=== PATIENT | male | born 1980 | race Caucasian/White ===

== ENCOUNTER 2023-06-27 15:31 | Outpatient (AMB) | payer OTHER, SELFPAY ==
[2023-06-27 15:39] VITALS: BP 158/104; PULSE 138; O2SAT 96
--- NOTE | 2023-06-27 15:39 | MHC.AM.SUB ---
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 Has 3 children (18, 10, and 7yo) Substance use started at 20yo with oxycontin- used to snort them with his father Has previously used: heroin, fentanyl, buprenorphine with [employer] for a short time, oxycodone, cocaine, and benzos He has previously taken Suboxone 20mg daily in split dosing with [employer] x 6 months then he started buying them off the street, States he has been in recovery x 16 years with 2 relapses both 1 yr apiece Has been to [facility] x 2 Has not taken part in any other outpatient programs Is interested in a assistant men's soccer coach Has no providers Hx of anxiety and panic attacks when he was in high school No hx of self harming thoughts NKA Hx of meniscus repair in 2013 (pt unsure which knee) His treatment goal is to attain sobriety and remain abstinent from opioids for his family and to maintain his job Review of Systems Const Reports as per HPI Physical Exam Vital Signs: Last Vital Signs Pulse 138 H 06/27/23 15:39 BP 158/104 H 06/27/23 15:39 Pulse Ox 96 06/27/23 15:39 Oxygen Delivery Method Room Air 06/27/23 15:39 Const General: cooperative and no acute distress Psych Appearance: grossly normal Mental Status: mental status grossly normal Speech and movement: Normal speech and movement present Affect: normal affect Attitude: cooperative Results AMB 12 Panel Urine Drug Screen Urine Marijuana (THC) Negative Last Edit by Aide Colmenares CMA on 06/27/23 15:49 Urine Buprenorphine Negative Last Edit by Aide Colmenares CMA on 06/27/23 15:49 Urine Barbiturates Negative Last Edit by Aide Colmenares CMA on 06/27/23 15:49 Urine Benzodiazepine Positive Last Edit by Aide Colmenares CMA on 06/27/23 15:49 Urine Methadone Positive Last Edit by Aide Colmenares CMA on 06/27/23 15:49 Urine Amphetamine Negative Last Edit by Aide Colmenares CMA on 06/27/23 15:49 Urine Morphine Negative Last Edit by Aide Colmenares CMA on 06/27/23 15:49 Urine Oxycodone Negative Last Edit by Aide Colmenares CMA on 06/27/23 15:49 Urine MDMA Negative Last Edit by Aide Colmenares CMA on 06/27/23 15:49 Urine Cocaine Positive Last Edit by Aide Colmenares CMA on 06/27/23 15:49 Urine Phencyclidine Negative Last Edit by Aide Colmenares CMA on 06/27/23 15:49 Urine Methamphetamine Negative Last Edit by Aide Colmenares CMA on 06/27/23 15:49 Results Reviewed Results Reviewed: Laboratory Last Values POC Urine Buprenorphine Negative 06/27/23 15:40 POC Urine Morphine Negative 06/27/23 15:40 POC Urine Oxycodone Negative 06/27/23 15:40 POC Urine Methadone Positive 06/27/23 15:40 POC Urine Barbiturates Negative 06/27/23 15:40 POC Urine PCP Negative 06/27/23 15:40 POC Ur Amphetamines Negative 06/27/23 15:40 POC Ur Methamphetamine Negative 06/27/23 15:40 POC Urine MDMA Negative 06/27/23 15:40 POC Ur Benzodiazepine Positive 06/27/23 15:40 POC Urine Cocaine Positive 06/27/23 15:40 POC Ur Marijuana (THC) Negative 06/27/23 15:40 Assessment & Plan Assessment & Plan (1) Opioid use disorder, severe, dependence: Code(s): F11.20 - Opioid dependence, uncomplicated Category: Medical Plan: -Discussed 3 day taper induction, patient provided with written instructions -Harm reduction discussed -Narcan provided to patient -Comfort meds sent to pharmacy (hydroxyzine and clonidine) patient instructed to take comfort meds prior to suboxone -Follow up 1 week Orders: Orders AMB 12 Panel Urine Drug Screen 06/27/23 Z51.81 - Encounter for therapeutic drug level monitoring Medications: New buprenorphine-naloxone 2-[address] 1 strip/tab under (each) side of tongue 1 film buccal TID 6 ea 0RF buprenorphine-naloxone 8-2 mg Take at end of induction 1 film buccal TID 10 ea 0RF azithromycin For 250 mg dose pack: take 500 mg today (day 1), then 250 mg for 4 days (days 2-5) PO 6 tabs 0RF hydroxyzine HCl 50 mg PO BID PRN 14 tabs 0RF itching clonidine HCl 0.1 mg PO TID 21 tabs 0RF
== END 2023-06-27 16:35 | disposition home or self-care (01) ==
LOC: HO.HCC 15:31
PROVIDERS: PCP Hospitalist; Visit Provider Nurse Practitioner Family
DX: F11.20 Opioid dependence, uncomplicated (principal)
CPT/HCPCS: 99204

== ENCOUNTER → 2023-06-27 15:31 | Outpatient (BNVA) | payer OTHER, SELFPAY | PROVIDERS: PCP Hospitalist; Visit Provider Nurse Practitioner Family | DX: F11.20 Opioid dependence, uncomplicated (principal) | CPT/HCPCS: 80305 ==

== ENCOUNTER 2023-07-05 16:31 | Outpatient (AMB) | payer OTHER, SELFPAY ==
[2023-07-05 16:44] VITALS: BP 146/88; PULSE 123; O2SAT 97
--- NOTE | 2023-07-05 16:44 | AM.OFFVISNUR ---
Intake Vital Signs 07/05/23 16:44 BP 146/88 H Blood Pressure Location Rt brachial Position Sitting Pulse 123 H Pulse Source Pulse Oximeter Pulse Oximetry (%) 97 Oxygen Delivery Method Room Air Comment pt had just run up the stairs Intake Visit Reasons: MAT visit Allergies No Known Allergies Allergy (Unverified 06/27/23 15:40) Coding
--- NOTE | 2023-07-06 08:38 | MHC.AM.SUB ---
Vital Signs 07/05/23 16:44 BP 146/88 H Blood Pressure Location Rt brachial Position Sitting Pulse 123 H Pulse Source Pulse Oximeter Pulse Oximetry (%) 97 Oxygen Delivery Method Room Air Comment pt had just run up the stairs Intake Visit Reasons: MAT visit Allergies No Known Allergies Allergy (Unverified 06/27/23 15:40) HPI HPI MAT visit: Details: Patient presents for MAT appointment Reports he tried starting his induction on a work day and just couldn't do it He is planning on taking a long weekend this weekend specifically to start his suboxone induction Says he has still been using, but is only using 4 bags a day when previous use had been multiple bundles a day He reports he still has all his films (minus the 1/4 he took when trying to induce) HPI Comments Details: Patient presents for MAT visit Review of Systems Const Reports as per HPI Physical Exam Vital Signs: Last Vital Signs Pulse 123 H 07/05/23 16:44 BP 146/88 H 07/05/23 16:44 Pulse Ox 97 07/05/23 16:44 Oxygen Delivery Method Room Air 07/05/23 16:44 Const General: cooperative and no acute distress Resp Effort & Inspection: normal respiratory effort and able to speak in complete sentences Psych Appearance: grossly normal Mental Status: mental status grossly normal Speech and movement: Normal speech and movement present Affect: normal affect Attitude: cooperative Thought process: Normal thought process present Assessment & Plan Assessment & Plan (1) Opioid use disorder, severe, dependence: Code(s): F11.20 - Opioid dependence, uncomplicated Category: Medical Plan: -Patient to check in with office on Sunday about how his induction is going/went -Follow up 1 week (he will make appt with office when he calls Sunday) -No additional films needed at this time
== END 2023-07-05 16:52 | disposition home or self-care (01) ==
PROVIDERS: PCP Hospitalist; Visit Provider Nurse Practitioner Family
DX: F11.20 Opioid dependence, uncomplicated (principal)
CPT/HCPCS: 99213

== ENCOUNTER → 2023-07-05 16:31 | Outpatient (BNVA) | payer OTHER, SELFPAY | PROVIDERS: PCP Hospitalist; Visit Provider Nurse Practitioner Family ==

== ENCOUNTER 2023-10-04 14:35 | Outpatient (AMB) | payer OTHER, SELFPAY ==
--- NOTE | 2023-10-04 14:42 | A.OFFVISCC_ITS ---
Vital Signs 10/04/23 15:56 BP 122/80 Pulse 95 Pulse Source Pulse Oximeter Pulse Oximetry (%) 99 Intake Visit Reasons: MAT Restart Allergies No Known Allergies Allergy (Unverified 06/27/23 15:40) HPI HPI MAT Restart: Details: Patient presents to re-establish care Was last seen in June when he was trying to cross taper opiates and suboxone He reports that since then he shared with his employer his struggle with substances and allowed him 2 weeks off to get it together Last cocaine and opiate use 6 days ago 6 days ago started suboxone currently at 20mg daily of suboxone --1 in AM, 1 2pm, 1/2 before bedtime having difficulty sleeping, nausea, sweating, tremulous Denies any alcohol use UDS +bup and cocaine Denies any hospitalizations or new medications Review of Systems Const Reports as per HPI Physical Exam Vital Signs: Last Vital Signs Pulse 95 10/04/23 15:56 BP 122/80 10/04/23 15:56 Pulse Ox 99 10/04/23 15:56 Const General: cooperative, healthy appearing, no acute distress and well groomed Nutritional Appearance: average body habitus Orientation/consciousness: patient oriented x3 Limitations: no limitations Neuro General: patient oriented x3 Results AMB 14 Panel Urine Drug Screen Urine Marijuana (THC) Negative Last Edit by Sabrina Dominguez on 10/04/23 15 :31 Urine Cocaine Positive Last Edit by Sabrina Dominguez on 10/04/23 15:31 Urine Morphine Negative Last Edit by Sabrina Dominguez on 10/04/23 15:31 Urine Methamphetamine Negative Last Edit by Sabrina Dominguez on 10/04/23 15 :31 Urine Amphetamine Negative Last Edit by Sabrina Dominguez on 10/04/23 15:31 Urine Benzodiazepine Negative Last Edit by Sabrina Dominguez on 10/04/23 15: 31 Urine Barbiturates Negative Last Edit by Sabrina Dominguez on 10/04/23 15:31 Urine Methadone Negative Last Edit by Sabrina Dominguez on 10/04/23 15:31 Urine Buprenorphine Positive Last Edit by Sabrina Dominguez on 10/04/23 15:3 1 Urine Tricyclic Antidepressant Positive Last Edit by Sabrina Dominguez on 10/04/23 15:31 Urine MDMA Negative Last Edit by Sabrina Dominguez on 07/25/24 15:31 Urine Oxycodone Negative Last Edit by Sabrina Dominguez on 10/04/23 15:31 Urine Phencyclidine Negative Last Edit by Sabrina Dominguez on 10/04/23 15:3 1 Urine Propoxyphene Negative Last Edit by Sabrina Dominguez on 10/04/23 15:31 Results Reviewed Results Reviewed: Laboratory Last Values POC Urine Buprenorphine Positive 10/04/23 15:30 POC Urine Morphine Negative 10/04/23 15:30 POC Urine Oxycodone Negative 10/04/23 15:30 POC Urine Methadone Negative 10/04/23 15:30 POC Urine Propoxyphene Negative 10/04/23 15:30 POC Urine Barbiturates Negative 10/04/23 15:30 POC U Tricyclic Antidpr Positive 10/04/23 15:30 POC Urine PCP Negative 10/04/23 15:30 POC Ur Amphetamines Negative 10/04/23 15:30 POC Ur Methamphetamine Negative 10/04/23 15:30 POC Urine MDMA Negative 10/04/23 15:30 POC Ur Benzodiazepine Negative 10/04/23 15:30 POC Urine Cocaine Positive 10/04/23 15:30 POC Ur Marijuana (THC) Negative 10/04/23 15:30 Assessment & Plan Assessment & Plan (1) Opioid use disorder, severe, dependence: Code(s): F11.20 - Opioid dependence, uncomplicated Category: Medical Plan: * increase suboxone to 12mg BID * comfort medications including gabapentin, zofran and trazodone ordered--reviewed rationale for these medications and side effects * follow up one week in office * lab work to be ordered at next visit Orders: Orders AMB 14 Panel Urine Drug Screen 10/04/23 Z51.81 - Encounter for therapeutic drug level monitoring Medications: New buprenorphine-naloxone 12-3 mg (Suboxone) 1 film buccal BID 28 ea 0RF gabapentin 100 mg PO TID 30 caps 0RF ondansetron HCl 4 mg PO Q8H PRN 20 tabs 0RF nausea and vomiting trazodone 50 mg PO BEDTIME PRN 10 tabs 0RF sleep Discontinued buprenorphine-naloxone 2-[address] 1 strip/tab under (each) side of tongue Discontinued Reason: Patient Completed Course 1 film buccal TID 6 ea 0RF buprenorphine-naloxone 8-2 mg Take at end of induction Discontinued Reason: Patient Completed Course 1 film buccal TID 10 ea 0RF
[2023-10-04 15:56] VITALS: BP 122/80; PULSE 95; O2SAT 99
== END 2023-10-04 15:02 | disposition home or self-care (01) ==
PROVIDERS: PCP Hospitalist; Visit Provider Nurse Practitioner Psychiatric/Mental Health
DX: F11.20 Opioid dependence, uncomplicated (principal)
CPT/HCPCS: 99214

== ENCOUNTER → 2023-10-04 14:35 | Outpatient (BNVA) | payer OTHER, SELFPAY | PROVIDERS: PCP Hospitalist; Visit Provider Nurse Practitioner Psychiatric/Mental Health | DX: F11.20 Opioid dependence, uncomplicated (principal) | CPT/HCPCS: 80305 ==

== ENCOUNTER 2023-10-16 14:07 | Outpatient (AMB) | payer OTHER, SELFPAY ==
--- NOTE | 2023-10-16 15:19 | A.OFFVISCC_ITS ---
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 has been communicating more with supports Review of Systems Const Reports as per HPI and Reports no additional complaints Physical Exam Const General: cooperative, healthy appearing, no acute distress and well groomed Nutritional Appearance: average body habitus Assessment & Plan Assessment & Plan (1) Opioid use disorder, severe, dependence: Code(s): F11.20 - Opioid dependence, uncomplicated Category: Medical Plan: * continue suboxone at current dose * relapse prevention discussion * follow up 2 weeks Medications: Changed From buprenorphine-naloxone 12-3 mg (Suboxone) 1 film buccal BID 28 ea 0RF To buprenorphine-naloxone 12-3 mg (Suboxone) 1 film sublingual BID 60 ea 0RF Refilled buprenorphine-naloxone 12-3 mg (Suboxone) 1 film buccal BID 28 ea 0RF
== END 2023-10-16 14:29 | disposition home or self-care (01) ==
PROVIDERS: PCP Hospitalist; Visit Provider Nurse Practitioner Psychiatric/Mental Health
DX: F11.20 Opioid dependence, uncomplicated (principal)
CPT/HCPCS: 99213

== ENCOUNTER → 2023-10-16 14:07 | Outpatient (BNVA) | payer OTHER, SELFPAY | PROVIDERS: PCP Hospitalist; Visit Provider Nurse Practitioner Psychiatric/Mental Health ==

== ENCOUNTER 2023-11-05 15:43 | Outpatient (AMB) | payer OTHER, SELFPAY ==
--- NOTE | 2023-11-05 16:05 | A.OFFVISCC_ITS ---
Intake Visit Reasons: MAT Allergies No Known Allergies Allergy (Unverified 06/27/23 15:40) Medication List - Last Reconciled 11/05/23 by Laurence Ravi CNP buprenorphine-naloxone 12-3 mg (Suboxone) 1 film sublingual BID clonidine HCl 0.1 mg PO TID HPI HPI MAT: Details: Patient presents for follow up Currently prescribed suboxone 12mg BID Still working FT --daughter moving into college next week No longer experiencing withdrawal sx Review of Systems Const Reports as per HPI and Reports no additional complaints Physical Exam Const General: cooperative, healthy appearing, no acute distress and well groomed Nutritional Appearance: average body habitus Assessment & Plan Assessment & Plan (1) Opioid use disorder, severe, dependence: Code(s): F11.20 - Opioid dependence, uncomplicated Category: Medical Plan: * continue suboxone at current dose * relapse prevention discussion * follow up 4 weeks
== END 2023-11-05 16:15 | disposition home or self-care (01) ==
PROVIDERS: PCP Hospitalist; Visit Provider Nurse Practitioner Psychiatric/Mental Health
DX: F11.20 Opioid dependence, uncomplicated (principal)
CPT/HCPCS: 99213

== ENCOUNTER → 2023-11-05 15:43 | Outpatient (BNVA) | payer OTHER, SELFPAY | PROVIDERS: PCP Hospitalist; Visit Provider Nurse Practitioner Psychiatric/Mental Health ==

== ENCOUNTER 2023-12-03 15:11 | Outpatient (AMB) | payer OTHER, SELFPAY ==
--- NOTE | 2023-12-03 15:15 | A.OFFVISCC_ITS ---
Intake Visit Reasons: MAT Allergies No Known Allergies Allergy (Unverified 06/27/23 15:40) HPI HPI MAT: Details: Patient presents for follow up Current suboxone dose 12mg BID continues to abstain from opiate use. 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) States he is now spending all of his extra money on this has discussed with his mother and she will managing his money for some time He reports feeling some shame around this as he is an adult and feels he should manage his own finances Discussed how this intervention is a healthy/effective response to this issue Review of Systems Const Reports as per HPI Physical Exam Const General: cooperative, healthy appearing, no acute distress and well groomed Nutritional Appearance: average body habitus Assessment & Plan Assessment & Plan (1) Opioid use disorder, severe, dependence: Code(s): F11.20 - Opioid dependence, uncomplicated Category: Medical Plan: * continue suboxone at current dose * relapse prevention discussion * follow up 4 weeks
== END 2023-12-03 15:51 | disposition home or self-care (01) ==
PROVIDERS: PCP Hospitalist; Visit Provider Nurse Practitioner Psychiatric/Mental Health
DX: F11.20 Opioid dependence, uncomplicated (principal)
CPT/HCPCS: 99213

== ENCOUNTER → 2023-12-03 15:11 | Outpatient (BNVA) | payer OTHER, SELFPAY | PROVIDERS: PCP Hospitalist; Visit Provider Nurse Practitioner Psychiatric/Mental Health ==

== ENCOUNTER 2024-01-21 15:31 | Outpatient (AMB) | payer OTHER, SELFPAY ==
--- NOTE | 2024-01-21 15:53 | A.OFFVISCC_ITS ---
Intake Visit Reasons: mat Allergies No Known Allergies Allergy (Unverified 06/27/23 15:40) HPI HPI mat: Details: Patient presents for follow up Currently prescribed Suboxone 12mg BID Reporting that within the last 2 weeks he has noted waking with restless legs Gambling has picked up--spending all of his money. Initial plan to give mom money not very effective as she quickly gives it back to him when he asks Denies any thoughts of using opiates or cocaine, but does acknowledge increasing anxiety Review of Systems Const Reports as per HPI Physical Exam Const General: cooperative, healthy appearing, no acute distress and well groomed Nutritional Appearance: average body habitus Assessment & Plan Assessment & Plan (1) Opioid use disorder, severe, dependence: Code(s): F11.20 - Opioid dependence, uncomplicated Category: Medical Plan: * continue suboxone at current dose --discussed splitting dose throughout the day * patient open to resources fro gambling--will mail some to him
== END 2024-01-21 16:24 | disposition home or self-care (01) ==
PROVIDERS: PCP Hospitalist; Visit Provider Nurse Practitioner Psychiatric/Mental Health
DX: F11.20 Opioid dependence, uncomplicated (principal)
CPT/HCPCS: 99214

== ENCOUNTER 2024-02-13 14:24 | Outpatient (AMB) | payer OTHER, SELFPAY ==
--- NOTE | 2024-02-13 14:43 | A.OFFVISCC_ITS ---
Intake Visit Reasons: mat Allergies No Known Allergies Allergy (Unverified 06/27/23 15:40) HPI HPI mat: Details: Patient presents for follow up Reports he has been splitting up doses and finds it helpful Taking it QID instead of BID (same dose, just smaller increments) Patient reporting that gambling remains an issue He is hesitant and somewhat dismissive regarding suggestions for support around this Making statements such as I am an addict, if it's not dope, I have to be addicted to something T/w challenged that statement, and encouraged patient to reflect on what recovery supports he has put in place since starting treatment for OUD--patient able to acknowledge that aside from medication, no other recovery oriented supports or activities in place. Briefly discussed options, and patient shared that he would be interested in referral to therapy. Does not feel comfortable in group settings Review of Systems Const Reports as per HPI Physical Exam Const General: cooperative and anxious Nutritional Appearance: average body habitus Orientation/consciousness: patient oriented x3 Neuro General: patient oriented x3 Assessment & Plan Assessment & Plan (1) Opioid use disorder, severe, dependence: Code(s): F11.20 - Opioid dependence, uncomplicated Category: Medical Plan: * no refill needed at this time * labs need to be completed prior to next refill * referral to provider * follow up 4 weeks
== END 2024-02-13 14:57 | disposition home or self-care (01) ==
PROVIDERS: PCP Hospitalist; Visit Provider Nurse Practitioner Psychiatric/Mental Health
DX: F11.20 Opioid dependence, uncomplicated (principal)
CPT/HCPCS: 99214

== ENCOUNTER → 2024-02-13 14:24 | Outpatient (BNVA) | payer OTHER, SELFPAY | PROVIDERS: PCP Hospitalist; Visit Provider Nurse Practitioner Psychiatric/Mental Health ==

== ENCOUNTER 2024-03-20 08:09 | Outpatient (REF) | payer OTHER, SELFPAY ==
[2024-03-20 08:33] LABS: MANUAL DIFF FLAG NO
[2024-03-20 09:04] LABS: Basophils Percent Auto 0.5 % (0-2); Eosinophils Absolute Auto 0.1 X10*3/uL (0.0-0.4); Eosinophils Percent Auto 1.4 % (0-4); Hematocrit 41.2 % (42.0-52.0); Hemoglobin 13.6 g/dl (14.0-18.0); Imm Gran Abs Auto 0.04 X10*3/uL (0.00-0.03); Imm Gran Pct Auto 0.6 % (0.0-0.4); Lymphocytes Absolute Auto 1.7 X10*3/uL (1.2-4.9); Lymphocytes Percent Auto 25.9 % (20-40); Mean Corpuscular Hemoglobin 27.9 pg (27.0-33.0); Mean Corpuscular Volume 84.4 fL (80.0-98.0); Mean Platelet Volume 10.7 fL (9.4-12.4); Monocytes Absolute Auto 0.5 X10*3/uL (0.1-1.2); Monocytes Percent Auto 7.8 % (2-11); Neutrophils Absolute Auto 4.1 x10*3/uL (2.0-8.3); Neutrophils Percent Auto 63.8 % (45-73); Platelet Count 249 X10*3/uL (160-400); Red Blood Count 4.88 X10*6/uL (4.60-5.80); Red Cell Distribution Width 13.2 % (11.0-16.0); White Blood Count 6.4 X10*3/uL (4.8-10.8)
[2024-03-20 09:24] LABS: Alanine Aminotransferase 119 U/L (0-40); Alkaline Phosphatase 88 U/L (39-117); Anion Gap 11 (12-20); Aspartate Amino Transferase 55 U/L (5-37); Bilirubin Total 0.3 mg/dL (0.0-1.0); Blood Urea Nitrogen 10 mg/dL (9-16); Calcium 9.2 mg/dL (8.4-10.2); Carbon Dioxide 29 mmol/L (22-29); Chloride 106 mmol/L (96-108); Estimated Glomerular Filt Rate > 60; Glucose Random 88 mg/dL (60-115); Potassium 4.4 mmol/L (3.3-5.1); Sodium 142 mmol/L (135-145); Total Protein 7.4 g/dL (6.5-8.0)
[2024-03-20 09:43] LABS: HIV AB/AG Nonreactive (Nonreactive); HIV Num 1 0.06 S/CO (0.00-0.99); ~Hepatitis C Antibody Nonreactive (Nonreactive)
== END 2024-03-20 08:10 | disposition home or self-care (01) ==
LOC: HO.LAB 08:09
PROVIDERS: Visit Provider Nurse Practitioner Psychiatric/Mental Health
DX: F11.20 Opioid dependence, uncomplicated (principal); Z79.899 Other long term (current) drug therapy
CPT/HCPCS: 36415; 80053; 85025; 86803; 87389

== ENCOUNTER 2024-04-07 15:21 | Outpatient (AMB) | payer OTHER, SELFPAY ==
--- NOTE | 2024-04-07 15:33 | MHC.AM.SUB ---
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
== END 2024-04-07 15:54 | disposition home or self-care (01) ==
PROVIDERS: PCP Hospitalist; Visit Provider Nurse Practitioner Psychiatric/Mental Health
DX: F11.20 Opioid dependence, uncomplicated (principal)
CPT/HCPCS: 99214

== ENCOUNTER 2024-06-20 14:10 | Outpatient (AMB) | payer OTHER, SELFPAY ==
--- NOTE | 2024-06-20 14:35 | MHC.OFFVIS ---
Vital Signs 06/20/24 14:55 Height 5 ft 8 in Weight 240 lb BMI 36.5 Pulse 98 Pulse Source Pulse Oximeter Pulse Oximetry (%) 99 Oxygen Delivery Method Room Air Intake Visit Reasons: Mat visit Allergies No Known Allergies Allergy (Verified 06/20/24 14:57) HPI HPI Mat visit: Details: He has been taking Suboxone / bid He has been using cocaine which he does every other week of so. He was questioning Topamax for cocaine and will think about it. [facility] Medical History (Updated 06/20/24 @ 15:26 by Harper Mandujano MD) Cocaine use disorder Review of Systems Const All systems reviewed & are unremarkable except as noted in HPI and below Physical Exam Vital Signs: Last Vital Signs Pulse 98 06/20/24 14:55 Pulse Ox 99 06/20/24 14:55 Oxygen Delivery Method Room Air 06/20/24 14:55 BMI result Body Mass Index 36.5 Const General: cooperative Results AMB 14 Panel Urine Drug Screen Urine Marijuana (THC) Negative Last Edit by Darline Michelle CMA on 06/20/24 14:58 Urine Cocaine Positive Last Edit by Darline Michelle CMA on 06/20/24 14:58 Urine Morphine Negative Last Edit by Darline Michelle CMA on 06/20/24 14:58 Urine Methamphetamine Negative Last Edit by Darline Michelle CMA on 06/20/24 14:58 Urine Amphetamine Negative Last Edit by Darline Michelle CMA on 06/20/24 14:58 Urine Benzodiazepine Negative Last Edit by Darline Michelle CMA on 06/20/24 14:58 Urine Barbiturates Negative Last Edit by Darline Michelle CMA on 06/20/24 14:58 Urine Methadone Negative Last Edit by Darline Michelle CMA on 06/20/24 14:58 Urine Buprenorphine Positive Last Edit by Darline Michelle CMA on 06/20/24 14:58 Urine Tricyclic Antidepressant Negative Last Edit by Darline Michelle CMA on 06/20/24 14:58 Urine MDMA Negative Last Edit by Darline Michelle CMA on 06/20/24 14:58 Urine Oxycodone Negative Last Edit by Darline Michelle CMA on 06/20/24 14:58 Urine Phencyclidine Negative Last Edit by Darline Michelle CMA on 06/20/24 14:58 Urine Propoxyphene Negative Last Edit by Darline Michelle CMA on 06/20/24 14:58 Results Reviewed Results Reviewed: Laboratory Last Values POC Urine Buprenorphine Positive 06/20/24 14:57 POC Urine Morphine Negative 06/20/24 14:57 POC Urine Oxycodone Negative 06/20/24 14:57 POC Urine Methadone Negative 06/20/24 14:57 POC Urine Propoxyphene Negative 06/20/24 14:57 POC Urine Barbiturates Negative 06/20/24 14:57 POC U Tricyclic Antidpr Negative 06/20/24 14:57 POC Urine PCP Negative 06/20/24 14:57 POC Ur Amphetamines Negative 06/20/24 14:57 POC Ur Methamphetamine Negative 06/20/24 14:57 POC Urine MDMA Negative 06/20/24 14:57 POC Ur Benzodiazepine Negative 06/20/24 14:57 POC Urine Cocaine Positive 06/20/24 14:57 POC Ur Marijuana (THC) Negative 06/20/24 14:57 Assessment & Plan Assessment & Plan (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 See Sun afternoon in two months Neg HIV and Hepatitis C (2) Opioid use disorder, severe, dependence: Code(s): F11.20 - Opioid dependence, uncomplicated Category: Medical Plan: na (3) Cocaine use disorder: Code(s): F14.10 - Cocaine abuse, uncomplicated Category: Medical Plan na Orders: Orders AMB 14 Panel Urine Drug Screen Today Z51.81 - Encounter for therapeutic drug level monitoring Medications: New buprenorphine-naloxone 12-3 mg (Suboxone) place 1 strip/tab under (each) side of tongue 2 film sublingual Q24H 30 days 60 ea 1RF Coding Level of Care Code Est Pt Level 3 (04746) Diagnoses Other alf (current) drug therapy Z79.899 Opioid use disorder, severe, dependence F11.20 Cocaine use disorder F14.10
[2024-06-20 14:55] VITALS: PULSE 98; O2SAT 99; BMI 36.5
== END 2024-06-20 15:29 | disposition home or self-care (01) ==
LOC: HO.HCC 14:10
PROVIDERS: PCP Hospitalist; Visit Provider Internal Medicine
DX: F11.20 Opioid dependence, uncomplicated (principal); Z79.899 Other long term (current) drug therapy; F14.10 Cocaine abuse, uncomplicated; Z51.81 Encounter for therapeutic drug level monitoring
CPT/HCPCS: 99213

== ENCOUNTER → 2024-06-20 14:10 | Outpatient (BNVA) | payer OTHER, SELFPAY | PROVIDERS: PCP Hospitalist; Visit Provider Internal Medicine | DX: F11.20 Opioid dependence, uncomplicated (principal); F14.10 Cocaine abuse, uncomplicated; Z79.899 Other long term (current) drug therapy | CPT/HCPCS: 80307 ==

== ENCOUNTER 2024-08-22 15:48 | Outpatient (AMB) | payer OTHER, SELFPAY ==
[2024-08-22 16:12] VITALS: PULSE 88; O2SAT 96; BMI 37.7
--- NOTE | 2024-08-22 16:12 | MHC.OFFVIS ---
Vital Signs 08/22/24 16:12 Height 5 ft 7 in Weight 241 lb BMI 37.7 Pulse 88 Pulse Source Pulse Oximeter Pulse Oximetry (%) 96 Oxygen Delivery Method Room Air Intake Visit Reasons: MAT Allergies No Known Allergies Allergy (Verified 08/22/24 16:13) HPI HPI MAT: Details: He is on 123 Suboxone with no complaints [facility] Medical History (Updated 06/20/24 @ 15:26 by Harper Mandujano MD) Cocaine use disorder Review of Systems Const All systems reviewed & are unremarkable except as noted in HPI and below Physical Exam Vital Signs: Last Vital Signs Pulse 88 08/22/24 16:12 Pulse Ox 96 08/22/24 16:12 Oxygen Delivery Method Room Air 08/22/24 16:12 BMI result Body Mass Index 37.7 Assessment & Plan Assessment & Plan (1) Other skilled nursing (current) drug therapy: Comment: doing well opioids,looking for new job Code(s): Z79.899 - Other skilled nursing (current) drug therapy Category: Medical Plan: See as scheduled. Continue Suboxone. Medications: New buprenorphine-naloxone 12-3 mg (Suboxone) 1 film sublingual BID 60 ea 1RF 30 days Discontinued buprenorphine-naloxone 12-3 mg (Suboxone) Discontinued Reason: Patient Completed Course 1 film sublingual BID 60 ea 1RF buprenorphine-naloxone 12-3 mg (Suboxone) place 1 strip/tab under (each) side of tongue Discontinued Reason: Patient Completed Course 2 film sublingual Q24H 30 days 60 ea 1RF Coding Level of Care Code Est Pt Level 3 (35562) Diagnoses Other skilled nursing (current) drug therapy Z79.899
== END 2024-08-22 16:18 | disposition home or self-care (01) ==
LOC: HO.HCC 15:49
PROVIDERS: PCP Hospitalist; Visit Provider Internal Medicine
DX: F14.21 Cocaine dependence, in remission (principal); Z79.899 Other long term (current) drug therapy
CPT/HCPCS: 99213

== ENCOUNTER → 2024-08-22 15:48 | Outpatient (BNVA) | payer OTHER, SELFPAY | PROVIDERS: PCP Hospitalist; Visit Provider Internal Medicine ==

== ENCOUNTER 2024-11-03 15:30 | Outpatient (AMB) | payer OTHER, SELFPAY ==
[2024-11-03 16:08] VITALS: BP 136/74; PULSE 84; O2SAT 96; BMI 38.2
--- NOTE | 2024-11-03 16:08 | A.OFFVIS_ITS ---
Vital Signs 11/03/24 16:08 Height 5 ft 7 in Weight 244 lb BMI 38.2 BP 136/74 Pulse 84 Pulse Oximetry (%) 96 Intake Visit Reasons: MAT Allergies No Known Allergies Allergy (Verified 11/03/24 16:09) HPI HPI MAT: Details: He is complaining of using more cocaine. He is not using opioids. [facility] Medical History Cocaine use disorder Review of Systems Const All systems reviewed & are unremarkable except as noted in HPI and below Physical Exam Vital Signs: Last Vital Signs Pulse 84 11/03/24 16:08 BP 136/74 11/03/24 16:08 Pulse Ox 96 11/03/24 16:08 BMI result Body Mass Index 38.2 Const General: cooperative Assessment & Plan Assessment & Plan (1) Opioid use disorder, severe, dependence: Comment: continue suboxone Code(s): F11.20 - Opioid dependence, uncomplicated Category: Medical Plan: n/a (2) Cocaine use disorder: Comment: use topamax, written for Code(s): F14.10 - Cocaine abuse, uncomplicated Category: Medical Plan: n/a Medications: New buprenorphine-naloxone 12-3 mg (Suboxone) 1 film sublingual BID 60 ea 1RF 30 days topiramate (Topamax) 50 mg PO BID 60 tabs 1RF 30 days Coding Level of Care Code Est Pt Level 3 (16695) Diagnoses Opioid use disorder, severe, dependence F11.20 Cocaine use disorder F14.10
== END 2024-11-03 16:13 | disposition home or self-care (01) ==
PROVIDERS: PCP Hospitalist; Visit Provider Internal Medicine
DX: F11.20 Opioid dependence, uncomplicated (principal); F14.10 Cocaine abuse, uncomplicated
CPT/HCPCS: 99213

== ENCOUNTER 2025-01-02 15:36 | Outpatient (AMB) | payer SELFPAY ==
[2025-01-02 15:45] VITALS: BP 122/62; PULSE 94; O2SAT 97; BMI 33.5
--- NOTE | 2025-01-02 15:45 | A.OFFVIS_ITS ---
Vital Signs 01/02/25 15:45 Height 5 ft 7 in Weight 214 lb BMI 33.5 BP 122/62 Pulse 94 Pulse Oximetry (%) 97 Intake Visit Reasons: MAT Allergies No Known Allergies Allergy (Verified 01/02/25 15:46) HPI Comments Details: History of Present Illness The patient is a 44-year-old male presenting with opioid use disorder. He is on Suboxone 12 mg each morning and 3 mg each evening but prefers smaller doses more frequently, seeking a modification to 8 mg three times daily. He denies experiencing any constipation, depression, or other significant issues, indicating compliance with his current treatment without adverse effects. Review of Systems - Psychiatric: Denies depression - Gastrointestinal: Denies constipation Physical Exam - Vital Signs- Stable Results Plan Patient was informed and verbally consented to the use of an ambient scribe for clinic note documentation during this visit. 1. Opioid use, unspecified, uncomplicated F11.90 The patient is on a regimen of Suboxone, currently 12 mg in the morning and 3 mg in the evening. He is interested in switching to a dosage of 8 mg three times daily, as he finds the larger doses unappealing. The plan involves adjusting his medication to the preferred dosing schedule, with follow-up to monitor effectiveness and any side effects, ensuring effective management of withdrawal symptoms. Discussion Notes I discussed with the patient his current management of opioid use disorder with Suboxone. He wishes to change from the present dosage to 8 mg taken three times daily due to discomfort with larger doses. We discussed the importance of maintaining effective treatment for opioid use disorder and agreed upon the new dosing schedule. I emphasized that this regiment will still meet his therapeutic needs. We also discussed the follow-up appointments that will evaluate the effectiveness and any potential side effects of the medication change. The patient was informed about potential risks and benefits, and he agreed to proceed with the suggested modifications. Medical Decision Making In managing this patient with opioid use disorder, the mendieta consideration is optimizing his Suboxone dosing for adherence and effectiveness. Switching from 12/3 mg twice daily to 8 mg three times daily better aligns with his preferences without compromising treatment outcomes. The goal is to maintain stable management of withdrawal symptoms and cravings, ensuring adherence and minimizing the risk of relapse. The new regimen will be closely monitored, adjusting if necessary based on the patient's response and tolerance. Patient Instructions - Continue taking Suboxone as directed, transitioning to 8 mg three times a day. - Attend scheduled follow-up appointments to monitor your response to the new medication dosing. - Report any side effects or concerns with the new dosing to healthcare provider. - Maintain open communication about medication adherence and effectiveness. [facility] Medical History Cocaine use disorder Physical Exam Vital Signs: Last Vital Signs Pulse 94 01/02/25 15:45 BP 122/62 01/02/25 15:45 Pulse Ox 97 01/02/25 15:45 BMI result Body Mass Index 33.5 Assessment & Plan Assessment & Plan (1) Cocaine use disorder: Code(s): F14.10 - Cocaine abuse, uncomplicated Category: Medical (2) Opioid use disorder, severe, dependence: Comment: continue suboxone Code(s): F11.20 - Opioid dependence, uncomplicated Category: Medical Plan: na Plan na Orders: Referrals Counseling Referral F11.20 - Opioid dependence, uncomplicated, F14.10 - Cocaine abuse, uncomplicated Medications: New buprenorphine-naloxone 8-2 mg (Suboxone) 1 film sublingual TID 90 ea 1RF 30 days Discontinued topiramate (Topamax) Discontinued Reason: None 50 mg PO BID 30 days 60 tabs 1RF Coding Level of Care Code Est Pt Level 3 (30522) Diagnoses Cocaine use disorder F14.10 Opioid use disorder, severe, dependence F11.20
== END 2025-01-02 16:11 | disposition home or self-care (01) ==
LOC: HO.HCC 15:36
PROVIDERS: PCP Hospitalist; Visit Provider Internal Medicine
DX: F14.10 Cocaine abuse, uncomplicated (principal); F11.20 Opioid dependence, uncomplicated
CPT/HCPCS: 99213

== ENCOUNTER → 2025-01-02 15:36 | Outpatient (BNVA) | payer SELFPAY | PROVIDERS: PCP Hospitalist; Visit Provider Internal Medicine | DX: F14.10 Cocaine abuse, uncomplicated (principal); F11.20 Opioid dependence, uncomplicated; Z79.899 Other long term (current) drug therapy | CPT/HCPCS: 99212 ==

== ENCOUNTER 2025-03-04 09:55 | Outpatient (AMB) | payer OTHER, SELFPAY ==
--- NOTE | 2025-03-04 10:02 | MHC.AM.SUB ---
Vital Signs 03/04/25 10:03 Height 5 ft 7 in Weight 210 lb BMI 32.9 Pulse 82 Pulse Source Pulse Oximeter Pulse Oximetry (%) 98 Oxygen Delivery Method Room Air Intake Visit Reasons: mat visit Allergies No Known Allergies Allergy (Verified 03/04/25 10:05) HPI HPI mat visit: Details: He has been taking Suboxone Urine screen shows cocaine also and patient working on quitting it Review of Systems Const All systems reviewed & are unremarkable except as noted in HPI and below Physical Exam Vital Signs: Last Vital Signs Pulse 82 03/04/25 10:03 Pulse Ox 98 03/04/25 10:03 Oxygen Delivery Method Room Air 03/04/25 10:03 BMI result Body Mass Index 32.9 Results AMB 14 Panel Urine Drug Screen Urine Marijuana (THC) Negative Last Edit by Darline Michelle CMA on 03/04/25 10:07 Urine Cocaine Positive Last Edit by Darline Michelle CMA on 03/04/25 10:07 Urine Morphine Negative Last Edit by Darline Michelle CMA on 03/04/25 10:07 Urine Methamphetamine Negative Last Edit by Darline Michelle CMA on 03/04/25 10:07 Urine Amphetamine Negative Last Edit by Darline Michelle CMA on 03/04/25 10:07 Urine Benzodiazepine Negative Last Edit by Darline Michelle CMA on 03/04/25 10:07 Urine Barbiturates Negative Last Edit by Darline Michelle CMA on 03/04/25 10:07 Urine Methadone Negative Last Edit by Darline Michelle CMA on 03/04/25 10:07 Urine Buprenorphine Positive Last Edit by Darline Michelle CMA on 03/04/25 10:07 Urine Tricyclic Antidepressant Negative Last Edit by Darline Michelle CMA on 03/04/25 10:07 Urine MDMA Negative Last Edit by Darline Michelle CMA on 03/04/25 10:07 Urine Oxycodone Negative Last Edit by Darline Michelle CMA on 03/04/25 10:07 Urine Phencyclidine Negative Last Edit by Darline Michelle CMA on 03/04/25 10:07 Urine Propoxyphene Negative Last Edit by Darline Michelle CMA on 03/04/25 10:07 Results Reviewed Results Reviewed: Laboratory Last Values POC Urine Buprenorphine Positive 03/04/25 10:06 POC Urine Morphine Negative 03/04/25 10:06 POC Urine Oxycodone Negative 03/04/25 10:06 POC Urine Methadone Negative 03/04/25 10:06 POC Urine Propoxyphene Negative 03/04/25 10:06 POC Urine Barbiturates Negative 03/04/25 10:06 POC U Tricyclic Antidpr Negative 03/04/25 10:06 POC Urine PCP Negative 03/04/25 10:06 POC Ur Amphetamines Negative 03/04/25 10:06 POC Ur Methamphetamine Negative 03/04/25 10:06 POC Urine MDMA Negative 03/04/25 10:06 POC Ur Benzodiazepine Negative 03/04/25 10:06 POC Urine Cocaine Positive 03/04/25 10:06 POC Ur Marijuana (THC) Negative 03/04/25 10:06 PFSH Medical History Cocaine use disorder Assessment & Plan Assessment & Plan (1) Other alf (current) drug therapy: Comment: Doing well but still using cocaine Code(s): Z79.899 - Other documentation writer (current) drug therapy Category: Medical Plan: Continue Suboxone See as scheduled in two months Reorder topiramate help cocaine use (2) Cocaine use disorder: Code(s): F14.10 - Cocaine abuse, uncomplicated Category: Medical Plan: as above Orders: Orders AMB 14 Panel Urine Drug Screen Today Z51.81 - Encounter for therapeutic drug level monitoring Medications: New buprenorphine-naloxone 8-2 mg (Suboxone) 1 film sublingual TID 90 ea 1RF 30 days
[2025-03-04 10:03] VITALS: PULSE 82; O2SAT 98; BMI 32.9
== END 2025-03-04 10:15 | disposition home or self-care (01) ==
LOC: HO.HCC 09:55
PROVIDERS: PCP Hospitalist; Visit Provider Internal Medicine
DX: Z79.899 Other long term (current) drug therapy (principal); F14.10 Cocaine abuse, uncomplicated; Z51.81 Encounter for therapeutic drug level monitoring
CPT/HCPCS: 99213

== ENCOUNTER → 2025-03-04 09:55 | Outpatient (BNVA) | payer OTHER, SELFPAY | PROVIDERS: PCP Hospitalist; Visit Provider Internal Medicine | DX: F14.10 Cocaine abuse, uncomplicated (principal); Z79.899 Other long term (current) drug therapy; Z51.81 Encounter for therapeutic drug level monitoring | CPT/HCPCS: 80307 ==